=== PATIENT | female | born 1935 | race Caucasian/White ===

== ENCOUNTER 2017-06-27 21:47 | Emergency (ER) | payer OTHER ==
[~2017-06-27] VITALS: Ht 162.6 cm; Wt 65.8 kg
[~2017-06-27 21:47] MED LIST: [UNRECOGNIZED DRUG - REMARK]
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
[2017-06-27 22:22] LABS: BASOPHILS % (AUTO) 0.5 % (0.0-2.0); EOSINOPHILS # (AUTO) 0.1 K/uL (0.0-0.7); EOSINOPHILS % (AUTO) 0.6 % (0.0-7.0); HEMOGLOBIN 13.9 G/DL (12.0-16.0); LYMPHOCYTES # (AUTO) 1.1 K/UL (0.8-4.8); LYMPHOCYTES % (AUTO) 12.6 % (20.5-51.5); MEAN CORPUSCULAR HEMOGLOBIN 31.7 UUG (27.0-31.0); MEAN CORPUSCULAR HGB CONC 35 g/dL (32.0-37.0); MEAN CORPUSCULAR VOLUME 91.2 FL (81.0-99.0); MONOCYTES # (AUTO) 0.7 K/UL (0.1-1.30); MONOCYTES % (AUTO) 7.8 % (0.0-11.0); NEUTROPHILS # (AUTO) 7.2 K/UL (1.8-8.9); NEUTROPHILS % (AUTO) 78.5 % (38.5-71.5); PLATELET COUNT (AUTO) 225 K/UL (150-450); RED BLOOD CELL COUNT(AUTO) 4.38 MIL/UL (4.2-5.4); WHITE BLOOD COUNT (AUTO) 9.1 K/UL (4.0-11.2)
--- NOTE | 2017-06-27 22:28 | NUR ---
contacted [facility], advised pt requiring 1:1, smooth advised they have no one at the moment, states as soon as staff becomes available... Addendum: 06/27/17 at 2231 by JESSICA will let ER know...
[2017-06-27] MEDS ORDERED: TETRACAINE HCL 0.5% OPHT DROP 2 ML BOTTLE ONE (22:29)
[2017-06-27 22:32] LABS: ETHANOL < 3 MG/DL (0-0)
[2017-06-27 22:38] LABS: ACETAMINOPHEN < 2.0 ug/mL (10-30); ALANINE AMINOTRANSFERASE 20 U/L (14-59); ALKALINE PHOSPHATASE 73 U/L (50-136); ASPARTATE AMINOTRANSFERASE 23 U/L (15-37); BILIRUBIN,DIRECT 0.1 mg/dL (0.0-0.2); BILIRUBIN,TOTAL 0.5 mg/dL (0.2-1.0); CARBON DIOXIDE 29 mmol/L (21-32); CHLORIDE 96 mmol/L (98-107); CREATININE 0.9 mg/dL (0.6-1.3); GLUCOSE 114 mg/dL (74-106); UREA NITROGEN, BLOOD 12 mg/dL (7-18)
[2017-06-27 22:46] LABS: THYROID STIMULATING HORMONE 0.261 mIU/mL (0.358-3.740)
[2017-06-27] MEDS ORDERED: TETRACAINE HCL 0.5% OPHT DROP 2 ML BOTTLE OP ONE (23:00)
--- NOTE | 2017-06-27 23:05 | NUR ---
[facility], SPOKE WITH INSOLE ROUNDER CB, STATES WILL HAVE CASE ASSIGNED TO ... AWAITING C/B....
[2017-06-27] MEDS ORDERED: LOVA20TA2 PO (23:36)
[2017-06-27] MEDS ORDERED: CALC-20 PO (23:36)
[2017-06-27] MEDS ORDERED: ACET1TAB23 PO (23:36)
[2017-06-27] MEDS ORDERED: ASPI-605 PO (23:36)
[2017-06-27] MEDS ORDERED: DICL100G16 TP (23:36)
[2017-06-27] MEDS ORDERED: ASCO500C16 PO (23:36)
[2017-06-27] MEDS ORDERED: MELO7.5T12 PO (23:36)
[2017-06-27] MEDS ORDERED: LISI2.5T2 PO (23:36)
[2017-06-27] MEDS ORDERED: OMEP20TA20 PO (23:36)
[2017-06-27] MEDS ORDERED: MULT1TAB73 PO (23:36)
[2017-06-27] MEDS ORDERED: ACET-2154 PO (23:36)
[2017-06-27] MEDS ORDERED: METH5TAB70 PO (23:36)
[2017-06-27] MEDS ORDERED: DOCU100C36 PO (23:36)
[2017-06-27] MEDS ORDERED: HYDROCODONE/APAP 5-325MG TABLET PO ONE (23:45)
--- NOTE | 2017-06-27 23:46 | NUR ---
[facility] who informed staff to contact our [facility] to perform PET evaluation and then return call to them.
[2017-06-27] MEDS ORDERED: HYDROCODONE/APAP 5-325MG TABLET ONE (23:51)
[2017-06-28] MEDS ORDERED: FLUORESCEIN SODIUM 1 MG STRIP OP ONE (00:30)
[2017-06-28] MEDS ORDERED: FLUORESCEIN SODIUM 1 MG STRIP ONE (00:47)
--- NOTE | 2017-06-28 01:49 | NUR ---
CONTACTED EMERGENCY ROOM TO GIVE REPORT , SPOKE WITH SONAL...
--- NOTE | 2017-06-28 02:03 | NUR ---
[facility] AT BEDSIDE TO TRANSFER PT, PT IS ALERT, ORIENTED X 3, NO RESP DISTRESS NOTED OR REPORTED UPON TRANSFER ASSESSMENT...
--- NOTE | 2017-06-28 02:06 | NUR ---
Patient Tranfers to outside Facility Physician: DR. She GARCIA Location: [facility]
== END 2017-06-28 02:21 | disposition short-term general hospital (02) ==
LOC: ER 21:48
DX: T62.8X1A Toxic effect of other specified noxious substances eaten as food, accidental (unintentional), initial encounter (principal); F79 Unspecified intellectual disabilities; F05 Delirium due to known physiological condition; F17.200 Nicotine dependence, unspecified, uncomplicated; Z88.0 Allergy status to penicillin; Z88.1 Allergy status to other antibiotic agents; I10 Essential (primary) hypertension; E78.5 Hyperlipidemia, unspecified; K21.9 Gastro-esophageal reflux disease without esophagitis; Y92.9 Unspecified place or not applicable; E03.9 Hypothyroidism, unspecified
CPT/HCPCS: 36415; 70030-TC; 71010; 84443; 85025; 85730; 93005; A4217; A4663; G0480; G0480-TC; J7030

== ENCOUNTER 2018-02-08 20:05 | Emergency (ER) | payer OTHER ==
[~2018-02-08] VITALS: Ht 162.6 cm; Wt 59.0 kg
[~2018-02-08 20:05] MED LIST changes: +ACET-2154 PO; +ACET1TAB23 PO; +ASCO500C16 PO; +ASPI-605 PO; +CALC-20 PO; +DICL100G16 TP; +DOCU100C36 PO; +LISI2.5T2 PO; +LOVA20TA2 PO; +MELO7.5T12 PO; +METH5TAB70 PO; +MULT1TAB73 PO; +OMEP20TA20 PO; -[UNRECOGNIZED DRUG - REMARK]
[2018-02-08] MEDS ORDERED: KETAMINE HCL 500 MG/10 ML INJ IV ONE (20:15)
[2018-02-08] MEDS ORDERED: LORAZEPAM 2 MG/1 ML VIAL IV ONE (20:15)
[2018-02-08] MEDS ORDERED: KETAMINE HCL 500 MG/10 ML INJ ONE (20:31)
[2018-02-08] MEDS ORDERED: LORAZEPAM 2 MG/1 ML VIAL ONE (20:33)
[2018-02-08 20:43] LABS: BASOPHILS # (AUTO) 0.1 K/uL (0.0-8.0); BASOPHILS % (AUTO) 0.7 % (0.0-2.0); EOSINOPHILS # (AUTO) 0.1 K/uL (0.0-0.7); EOSINOPHILS % (AUTO) 0.9 % (0.0-7.0); HEMATOCRIT 38.7 % (31.2-41.9); HEMOGLOBIN 13.3 g/dL (10.9-14.3); LYMPHOCYTES # (AUTO) 3.2 K/uL (20.0-40.0); LYMPHOCYTES % (AUTO) 32.7 % (20.5-51.5); MEAN CORPUSCULAR HEMOGLOBIN 31.4 uug (24.7-32.8); MEAN CORPUSCULAR HGB CONC 34 g/dL (32.3-35.6); MEAN CORPUSCULAR VOLUME 91.3 fL (75.5-95.3); MONOCYTES # (AUTO) 1.1 K/uL (2.0-10.0); MONOCYTES % (AUTO) 11.4 % (0.0-11.0); NEUTROPHILS # (AUTO) 5.3 K/uL (1.8-8.9); NEUTROPHILS % (AUTO) 54.3 % (38.5-71.5); PLATELET COUNT (AUTO) 285 K/uL (179-408); RED BLOOD CELL COUNT(AUTO) 4.24 MIL/uL (3.63-4.92); WHITE BLOOD COUNT (AUTO) 9.8 K/uL (3.8-11.8)
--- NOTE | 2018-02-08 20:45 | NUR ---
PT IN BED. PT IS RESTING, QUIETLY WITH EYES CLOSED. PT IS EASILY ARROUSABLE TO VOICE. NO SIGNS OF DISTRESS WITNESSED BY NURSE OR EXPRESSED BY PT.
[2018-02-08 20:49] LABS: CARBON DIOXIDE 28 mmol/L (21-32); CHLORIDE 98 mmol/L (98-107); CREATININE 0.9 mg/dL (0.6-1.3); GLUCOSE 113 mg/dL (74-106); POTASSIUM 4.3 mmol/L (3.5-5.1); UREA NITROGEN, BLOOD 34 mg/dL (7-18)
--- NOTE | 2018-02-08 21:07 | NUR ---
PT IN BED. PULSE OX WOULD NOT READING. O2 MONITOR WAS REPLACED. PT BEGAN TO EXPERIENCE REDUCED O2 SAT. PT PLACED ON 2LT NASAL CANULA. O2 THEN RETURNED TO 99%. PT STILL EASILY AROUSED.
[2018-02-08 21:08] LABS: ALANINE AMINOTRANSFERASE 25 U/L (14-59); ALKALINE PHOSPHATASE 105 U/L (50-136); ASPARTATE AMINOTRANSFERASE 24 U/L (15-37); BILIRUBIN,DIRECT 0.1 mg/dL (0.0-0.2); BILIRUBIN,TOTAL 0.2 mg/dL (0.2-1.0); TOTAL PROTEIN, SERUM 6.9 g/dL (6.4-8.2)
--- NOTE | 2018-02-08 23:05 | NUR ---
SPOKE WITH MANNY Guardado/ [facility]
--- NOTE | 2018-02-08 23:11 | NUR ---
[facility] CALLED. EPRCecelia RICHEY WILL CALL BACK TO SPEAK WITH MD PEREZ.
[2018-02-08] MEDS ORDERED: AZTREONAM 1 G VIAL IV ONE (23:30)
[2018-02-08] MEDS ORDERED: LEVOFLOXACIN 500 MG/D5W 100ML PIGGYBACK IV ONE (23:30)
[2018-02-09] MEDS ORDERED: KETAMINE HCL 500 MG/10 ML INJ IV ONE
[2018-02-09] MEDS ORDERED: KETAMINE HCL 500 MG/10 ML INJ ONE (00:01)
[2018-02-09] MEDS ORDERED: LEVOFLOXACIN 250 MG IV ONE (00:02)
[2018-02-09] MEDS ORDERED: AZTREONAM 1 G VIAL ONE (00:02)
[2018-02-09] MEDS ORDERED: D5W IV ONE (00:02)
--- NOTE | 2018-02-09 00:36 | NUR ---
PT IN BED. PT IS RESTING QUIETLY WITH EYES CLOSED. PT IS EASILY ARROUSABLE. IV ANTIBIOTIC ARE RUNNING. VSS. NO SIGNS OF DISTRESS WITNESSED BY NURSE OR EXPRESSED BY PT, AT THIS TIME.
[2018-02-09 00:37] LABS: *BILIRUBIN,URIN NEGATIVE (NEGATIVE); *BLOOD, URINE NEGATIVE (NEGATIVE); *CLARITY,URINE CLEAR (CLEAR); *COLOR,URINE YELLOW (YELLOW); *KETONES,URINE NEGATIVE (NEGATIVE); *PROTEIN,URINE NEGATIVE (NEGATIVE); *UROBILINOGEN,URINE 0.2 E.U./dl (NORMAL); LEUKOCYTE ESTERASE ,URINE NEGATIVE (NEGATIVE); NITRITE, URINE NEGATIVE (NEGATIVE); UGLUCOSE NEGATIVE (NEGATIVE)
[2018-02-09 00:59] LABS: BACTERIA,URINE NONE SEEN /HPF (NONE SEEN); RBC,URINE 0-3 /HPF (0-3); SQUAMOUS EPITHELIAL CELL,UR FEW /HPF (NONE SEEN); WBC,URINE 0-3 /HPF (0-3)
--- NOTE | 2018-02-09 00:59 | NUR ---
CALL RECEIVED FROM [facility]. PT ACCEPTED TO [facility] BED 4038S. ACCEPTING MD IN DR. MCKEE. TRANSPORT ETA [id number].
[2018-02-09] MEDS ORDERED: ONDANSETRON IV *ER 4 MG/2 ML VIAL IV ONE ×2 (01:00→02:15)
--- NOTE | 2018-02-09 01:32 | NUR ---
PT ROOM CHANGED TO #[id number]. REPORT GIVEN TO SAURABH SIMPSON AT .
--- NOTE | 2018-02-09 01:48 | NUR ---
[facility] HERE FOR PT. REPORT GIVEN TO WILEY PATE [facility] #[id number].
[2018-02-09] MEDS ORDERED: ONDANSETRON 4 MG/2 ML VIAL ONE (02:08)
[2018-02-09] MEDS ORDERED: PROCHLORPERAZINE EDISYLATE 10 MG/2 ML VIAL ONE (02:42)
[2018-02-09] MEDS ORDERED: BENZTROPINE MESYLATE 2 MG/2 ML AMPUL IM ONE (02:45)
[2018-02-09] MEDS ORDERED: PROCHLORPERAZINE EDISYLATE 10 MG/2 ML VIAL IV ONE (02:45)
[2018-02-09] MEDS ORDERED: BENZTROPINE MESYLATE 2 MG/2 ML AMPUL ONE (02:48)
--- NOTE | 2018-02-09 02:55 | NUR ---
PT IN ROUTE TO [facility]
== END 2018-02-09 02:55 | disposition short-term general hospital (02) ==
LOC: ER 20:06
DX: S72.142A Displaced intertrochanteric fracture of left femur, initial encounter for closed fracture (principal); I10 Essential (primary) hypertension; E78.5 Hyperlipidemia, unspecified; K21.9 Gastro-esophageal reflux disease without esophagitis; F17.210 Nicotine dependence, cigarettes, uncomplicated; Z88.0 Allergy status to penicillin; Z88.1 Allergy status to other antibiotic agents; Z88.8 Allergy status to other drugs, medicaments and biological substances; Z91.048 Other nonmedicinal substance allergy status; Z91.018 Allergy to other foods; Z79.82 Long term (current) use of aspirin; Z79.899 Other long term (current) drug therapy; W01.0XXA Fall on same level from slipping, tripping and stumbling without subsequent striking against object, initial encounter; Y92.89 Other specified places as the place of occurrence of the external cause; Y93.89 Activity, other specified; Y99.8 Other external cause status
CPT/HCPCS: 36415; 70030-TC; 71045; 73502; 83605; 85025; 85730; 87040; 87086; 93005; A4663; J0515; J0780; J1956; J2060; J2405; J3490

== ENCOUNTER 2018-03-04 16:01 | Emergency (ER) | payer OTHER ==
[~2018-03-04] VITALS: Ht 162.6 cm; Wt 55.8 kg
[2018-03-04] MEDS ORDERED: ACETAMINOPHEN (16:14)
[2018-03-04] MEDS ORDERED: LIDOCAINE 5% (16:14)
[2018-03-04] MEDS ORDERED: OXYCODONE (16:14)
[2018-03-04] MEDS ORDERED: LISINOPRIL 2.5 MG TABS (16:14)
[2018-03-04] MEDS ORDERED: LOVASTATIN 20 MG (16:14)
[2018-03-04] MEDS ORDERED: IV NORMAL SALINE 500 ML BAG IV ONE (16:45)
[2018-03-04 16:59] LABS: BASOPHILS # (AUTO) 0.1 K/uL (0.0-8.0); BASOPHILS % (AUTO) 0.5 % (0.0-2.0); EOSINOPHILS # (AUTO) 0.1 K/uL (0.0-0.7); EOSINOPHILS % (AUTO) 0.5 % (0.0-7.0); HEMATOCRIT 33.6 % (31.2-41.9); LYMPHOCYTES # (AUTO) 1.1 K/uL (20.0-40.0); LYMPHOCYTES % (AUTO) 9.7 % (20.5-51.5); MEAN CORPUSCULAR HEMOGLOBIN 29.7 uug (24.7-32.8); MEAN CORPUSCULAR HGB CONC 33 g/dL (32.3-35.6); MEAN CORPUSCULAR VOLUME 90.6 fL (75.5-95.3); MONOCYTES % (AUTO) 9.5 % (0.0-11.0); NEUTROPHILS # (AUTO) 8.8 K/uL (1.8-8.9); NEUTROPHILS % (AUTO) 79.8 % (38.5-71.5); PLATELET COUNT (AUTO) 254 K/uL (179-408); RED BLOOD CELL COUNT(AUTO) 3.71 MIL/uL (3.63-4.92)
--- NOTE | 2018-03-04 17:00 | NUR ---
Patient refused CT scan@this time, notified.
[2018-03-04 17:07] LABS: CARBON DIOXIDE 29 mmol/L (21-32); CHLORIDE 99 mmol/L (98-107); CREATININE 0.6 mg/dL (0.6-1.3); GLUCOSE 103 mg/dL (74-106); POTASSIUM 3.9 mmol/L (3.5-5.1); UREA NITROGEN, BLOOD 17 mg/dL (7-18)
[2018-03-04 17:13] LABS: ALANINE AMINOTRANSFERASE 22 U/L (14-59); ALKALINE PHOSPHATASE 127 U/L (50-136); ASPARTATE AMINOTRANSFERASE 19 U/L (15-37); BILIRUBIN,DIRECT 0.2 mg/dL (0.0-0.2); BILIRUBIN,TOTAL 0.5 mg/dL (0.2-1.0); LIPASE 73 U/L (73-393); TOTAL PROTEIN, SERUM 6.4 g/dL (6.4-8.2)
[2018-03-04] MEDS ORDERED: MAGNESIUM CITRATE 296 ML BOTTLE ONE (17:21)
[2018-03-04] MEDS ORDERED: MAGNESIUM CITRATE 296 ML BOTTLE PO ONE (17:30)
[2018-03-04] MEDS ORDERED: MAGNESIUM HYDROXIDE 30 ML LIQUID UDC PO ONE (17:30)
[2018-03-04] MEDS ORDERED: MAGNESIUM HYDROXIDE 30 ML LIQUID UDC ONE ×2 (17:41)
--- NOTE | 2018-03-04 17:47 | NUR ---
Patient is for discharge per Dr Navarro, pending HERMAN-arranged ambulance to bring patient back home.
--- NOTE | 2018-03-04 17:49 | NUR ---
Attempted to assist patient to another position while on [place] with 3-nurse assist, pt refused further assistance despite explaining the benefits of position changes@this time. Chucks x2 are clean and dry at the moment.
--- NOTE | 2018-03-04 18:12 | NUR ---
Patient is resting comfortably on gurney with eyes closed, no complaints of pains expressed at this time. [facility] called back and said that the S ambulance will be in our ER in approx 1900.
[2018-03-04] MEDS ORDERED: OXYCODONE/APAP 5-325 MG TABLET PO ONE (19:15)
[2018-03-04] MEDS ORDERED: OXYCODONE/APAP 5-325 MG TABLET ONE (19:20)
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
--- NOTE | 2018-03-04 19:42 | NUR ---
Spoke with Chandler from [facility], they are aware patient refused previous transportation. awaiting call back for update.
--- NOTE | 2018-03-04 20:04 | NUR ---
Patient is agreeable to reattempt transport with the previous [facility] ambulance and staff. Awaiting return of [facility] transport at this time. patient remains in bed, spoke with MD, risks vs benefits explained.
--- NOTE | 2018-03-04 21:06 | NUR ---
[facility] assigned BLS transport from [facility] at bedside for patient pickup at this time.
--- NOTE | 2018-03-04 21:09 | NUR ---
[facility] ambulance unit #57 BLS transport transporting patient home at this time. Patient discharged to home in stable conditon. Written and verbal after care instructions given. Patient verbalizes understanding of instructions. All belongings with patient. Peripheral IV removed prior to dischrage.
[2018-03-04 21:11] VITALS: BP 110/62
== END 2018-03-04 21:11 | disposition home or self-care (01) ==
LOC: ER 16:02
DX: K59.00 Constipation, unspecified (principal); I10 Essential (primary) hypertension; E78.5 Hyperlipidemia, unspecified; K21.9 Gastro-esophageal reflux disease without esophagitis; F17.210 Nicotine dependence, cigarettes, uncomplicated; Z88.0 Allergy status to penicillin; Z88.1 Allergy status to other antibiotic agents; Z88.8 Allergy status to other drugs, medicaments and biological substances; Z91.048 Other nonmedicinal substance allergy status; Z79.891 Long term (current) use of opiate analgesic; Z79.899 Other long term (current) drug therapy; Z79.82 Long term (current) use of aspirin; Z91.018 Allergy to other foods
CPT/HCPCS: 36415; 70030-TC; 71045; 83690; 85025; 93005; A4663; J7040

== ENCOUNTER 2018-03-15 17:53 | Emergency (ER) | payer OTHER ==
[~2018-03-15] VITALS: Ht 152.4 cm; Wt 54.4 kg
[~2018-03-15 17:53] MED LIST changes: +ACETAMINOPHEN; +LIDOCAINE 5%; +LISINOPRIL 2.5 MG TABS; +OXYCODONE
[2018-03-15] MEDS ORDERED: OXYC-128 PO (18:17)
[2018-03-15 18:27] LABS: BASOPHILS % (AUTO) 0.2 % (0.0-2.0); HEMATOCRIT 38.3 % (31.2-41.9); HEMOGLOBIN 12.8 g/dL (10.9-14.3); LYMPHOCYTES # (AUTO) 0.6 K/uL (20.0-40.0); LYMPHOCYTES % (AUTO) 2.7 % (20.5-51.5); MEAN CORPUSCULAR HEMOGLOBIN 29.6 uug (24.7-32.8); MEAN CORPUSCULAR HGB CONC 34 g/dL (32.3-35.6); MEAN CORPUSCULAR VOLUME 88.4 fL (75.5-95.3); MONOCYTES # (AUTO) 1.6 K/uL (2.0-10.0); MONOCYTES % (AUTO) 6.8 % (0.0-11.0); NEUTROPHILS # (AUTO) 20.9 K/uL (1.8-8.9); NEUTROPHILS % (AUTO) 90.3 % (38.5-71.5); PLATELET COUNT (AUTO) 328 K/uL (179-408); RED BLOOD CELL COUNT(AUTO) 4.33 MIL/uL (3.63-4.92); WHITE BLOOD COUNT (AUTO) 23.2 K/uL (3.8-11.8)
[2018-03-15] MEDS: IV NORMAL SALINE 500 ML BAG IV ONE (18:30)
[2018-03-15 18:35] LABS: CARBON DIOXIDE 29 mmol/L (21-32); CHLORIDE 98 mmol/L (98-107); CREATININE 0.8 mg/dL (0.6-1.3); GLUCOSE 113 mg/dL (74-106); POTASSIUM 3.8 mmol/L (3.5-5.1); UREA NITROGEN, BLOOD 24 mg/dL (7-18)
[2018-03-15 18:41] LABS: ALANINE AMINOTRANSFERASE 70 U/L (14-59); ALKALINE PHOSPHATASE 136 U/L (50-136); ASPARTATE AMINOTRANSFERASE 173 U/L (15-37); BILIRUBIN,DIRECT 0.2 mg/dL (0.0-0.2); BILIRUBIN,TOTAL 0.6 mg/dL (0.2-1.0); LIPASE 52 U/L (73-393)
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
[2018-03-15] MEDS: IV NORMAL SALINE 1000 ML BAG IV ONE (19:30)
[2018-03-15] MEDS ORDERED: AZTREONAM 1 G VIAL ONE (19:37)
[2018-03-15] MEDS ORDERED: METRONIDAZOLE 500 MG/NS 100ML 100 ML IV ONE (19:38)
[2018-03-15] MEDS: METRONIDAZOLE 500 MG/NS 100ML 100 ML IV ONE (19:40)
--- NOTE | 2018-03-15 20:00 | NUR ---
PT NOW MORE ALERT. PT IS RESPONSIVE TO VERBAL + TACTILE STIMULI. PT VSS. PT ON MONITOR. FALL PRECAUTIONS IMPLEMENTED. PT PROVIDED PERINEAL HYGIENE AND RESPOSITIONED FOR COMFORT.
[2018-03-15] MEDS: AZTREONAM 1 G VIAL IV ONE (20:20)
--- NOTE | 2018-03-15 20:42 | NUR ---
CALLED [facility] AND SPOKE TO TANJA. SHE WILL FAX OVER PT LIST OF MEDICATIONS AND STATED TO HAVE US CALL BACK WHEN PT IS READY.
[2018-03-15] MEDS ORDERED: VANCOMYCIN IV 200 ML ONE (21:04)
[2018-03-15] MEDS: VANCOMYCIN IV 1,000 MG in IV DEXTROSE 5% 250 ML IV ONE (21:10)
[2018-03-15 21:39] LABS: *BILIRUBIN,URIN NEGATIVE (NEGATIVE); *BLOOD, URINE Trace-lysed (NEGATIVE); *CLARITY,URINE CLEAR (CLEAR); *COLOR,URINE YELLOW (YELLOW); *KETONES,URINE 2+ (NEGATIVE); *PROTEIN,URINE 1+ (NEGATIVE); *UROBILINOGEN,URINE 0.2 E.U./dl (NORMAL); LEUKOCYTE ESTERASE ,URINE NEGATIVE (NEGATIVE); NITRITE, URINE NEGATIVE (NEGATIVE); UGLUCOSE NEGATIVE (NEGATIVE)
[2018-03-15 21:44] LABS: BACTERIA,URINE FEW /HPF (NONE SEEN); RBC,URINE 0-3 /HPF (0-3); SQUAMOUS EPITHELIAL CELL,UR FEW /HPF (NONE SEEN)
--- NOTE | 2018-03-15 21:57 | NUR ---
PT'S SON CHERI ERWIN CALLED FOR UPDATE. PHONE NUMBER IS [phone]
--- NOTE | 2018-03-15 22:00 | NUR ---
PT RESTING COMFORTABLY IN BED WITH EYES CLOSED. AAOX1. PT RESPONDS TO VERBAL + TACTILE STIMULI. RESPIRATIONS EVEN + UNLABORED. SA02 96% RA. PT ON MONITOR. NO DISTRESS NOTED. WHEELS LOCKED. BED IN LOWEST POSITION.
--- NOTE | 2018-03-15 22:14 | NUR ---
CALLED [facility] AND SPOKE TO TANJA. SHE WILL HAVE THE DOCTOR CALL BACK TO SPEAK TO DR. PEREZ.
--- NOTE | 2018-03-15 22:49 | NUR ---
DR. BASILIO FROM [facility] TALKING TO DR. PEREZ
--- NOTE | 2018-03-16 00:08 | NUR ---
SPOKE TO [place] FROM [facility] REGARDING PT TRANSFER FROM [facility] TO [facility]. PT WILL BE ADMITTED TO ROOM 5109 BED B. NUMBER FOR REPORT [phone]. WILL BE ADMITTED BY DR. Florecita MYERS. ALS TRANSFER ETA 1 HR.
--- NOTE | 2018-03-16 00:20 | NUR ---
CALLED AND SPOKE TO PT'S SON, CHERI ERWIN, ABOUT PT TRANSFER TO [facility].
--- NOTE | 2018-03-16 00:25 | NUR ---
CALLED [facility] AND GAVE REPORT TO LYLE WILEY.
--- NOTE | 2018-03-16 00:38 | NUR ---
PT RESTING COMFORTABLY IN BED. VSS. PENDING TRANSFER TO [place]
--- NOTE | 2018-03-16 01:25 | NUR ---
TRANSPORT ARRIVED TO TRANSFER PT TO [facility]. GAVE ALL BELONGINGS ASSIGNED BY TRANSPORTER CHARLES. SCHWARZ.
== END 2018-03-16 01:30 | disposition short-term general hospital (02) ==
LOC: ER 17:54
DX: I63.9 Cerebral infarction, unspecified (principal); A41.9 Sepsis, unspecified organism; I10 Essential (primary) hypertension; E78.5 Hyperlipidemia, unspecified; K21.9 Gastro-esophageal reflux disease without esophagitis; F17.210 Nicotine dependence, cigarettes, uncomplicated; Z88.0 Allergy status to penicillin; Z88.1 Allergy status to other antibiotic agents; Z88.8 Allergy status to other drugs, medicaments and biological substances; Z91.048 Other nonmedicinal substance allergy status; Z91.030 Bee allergy status; Z91.018 Allergy to other foods; Z86.73 Personal history of transient ischemic attack (TIA), and cerebral infarction without residual deficits; Z79.82 Long term (current) use of aspirin; Z79.891 Long term (current) use of opiate analgesic; Z79.899 Other long term (current) drug therapy
CPT/HCPCS: 36415; 70030-TC; 70450; 71045; 83605; 83690; 85025; 85730; 87040; 87086; 93005; A4217; A4663; J3370; J3490; J7030; J7040